=== PATIENT | male | born 1940 | race Caucasian/White ===

== ENCOUNTER 2022-07-16 02:26 | Observation (INO) | payer MEDICARE ==
[2022-07-16] MEDS ORDERED: predniSONE 20 MG TAB ONE (03:06)
[2022-07-16] MEDS ORDERED: Ipratropium/Albuterol 3 ML NEB ONE (03:06)
[2022-07-16] MEDS ORDERED: Doxycycline 100 MG CAP ONE (03:13)
[2022-07-16 03:34] LABS: #Basophils 0.1 thou/uL (0.0-0.2); #Eosinphils 0.4 thou/uL (0.0-0.7); #Lymphocytes 2.2 thou/uL (1.20-3.40); #Monocytes 0.7 thou/uL (0.11-0.59); #Neutrophils 5.6 thou/uL (1.40-6.50); %Basophils 0.8 % (0.0-1.0); %Eosinophils 4.6 % (0.0-10.0); %Lymphocytes 24.7 % (21.0-51.0); %Monocytes 8.1 % (0.0-10.0); %Neutrophils 61.8 % (42.0-75.0); Hemoglobin 12.8 g/dL (14.0-18.0); Mean Corpuscular HGB CONC 32.5 g/dL (32.0-36.0); Mean Corpuscular Hemoglobin 29.7 pg (27.0-31.0); Mean Corpuscular Volume 91.4 fl (78.0-98.0); Mean Platelet Volume 6.2 fL (7.4-10.4); Platelet Count 277 10x3/uL (130-400); RBC Distribution Width 14.2 % (11.5-14.5); Red Blood Cell (RBC) Count 4.32 mill/uL (4.70-6.10)
[2022-07-16 03:52] LABS: ALT (SGPT) 12 U/L (8-55); AST (SGOT) 11 U/L (5-34); Albumin 4.1 g/dL (3.4-4.8); Alkaline Phosphatase 67 U/L (40-110); Anion Gap 18 mmol/L (10-20); BUN (Urea Nitrogen) 23 mg/dL (8.4-25.7); Bilirubin, Total 0.3 mg/dL (0.2-1.2); Calc. Creatinine Clearance 0 mL/min (70-130); Calcium 9.3 mg/dL (7.8-10.44); Carbon Dioxide 24 mmol/L (23-31); Chloride 105 mmol/L (98-107); Estimated GFR 65; Glucose 135 mg/dL (83-110); Potassium 4.6 mmol/L (3.5-5.1); Protein, Total 7.1 g/dL (5.8-8.1); Sodium 142 mmol/L (136-145)
[2022-07-16] MEDS ORDERED: Ondansetron PF 4 MG/2 ML Vial IVP PRN (07:56)
[2022-07-16] MEDS ORDERED: Ondansetron ODT 4 MG TAB PO PRN (07:56)
[2022-07-16 08:31] LABS: SARS-CoV-2 NAA Rapid Test DETECTED (NotDetected)
[2022-07-16] MEDS ORDERED: Albuterol 200 PUFF (6.7GM INHALER) INH PRN ×2 (08:36→10:06)
[2022-07-16 08:52] VITALS: BMI 25.1
[2022-07-16] MEDS ORDERED: Non-Formulary Item 1 EACH (Albuterol Sulfate [Proair Digihaler] 90 MCG Aer.Pw.Bas) IH PRN (09:53)
[2022-07-16] MEDS ORDERED: Ipratropium/Albuterol 3 ML NEB NEB SCH (12:00)
[2022-07-16] MEDS: Ipratropium/Albuterol Sulfate 4 GM AER IH SCH ×3 (12:16→23:54)
[2022-07-16] MEDS: methylPREDNISolone Sod Succ 40 MG VIAL IVP SCH ×2 (14:22→21:19)
[2022-07-16] MEDS ORDERED: Non-Formulary Item 1 EACH (Rivaroxaban [Xarelto] 20 MG Tablet) PO SCH (17:00)
[2022-07-16] MEDS ORDERED: Rivaroxaban 10 MG TAB PO SCH (17:00)
[2022-07-16] MEDS ORDERED: diphenhydrAMINE 25 MG CAP PO SCH (21:00)
[2022-07-16] MEDS ORDERED: Non-Formulary Item 1 EACH (Diltiazem Hcl [Diltiazem 12hr Er] 120 MG Cap.Er.12h) PO SCH (21:00)
[2022-07-16] MEDS ORDERED: Pravastatin Sodium 20 MG TAB PO SCH (21:00)
[2022-07-16] MEDS ORDERED: Non-Formulary Item 1 EACH (Acetaminophen/Diphenhydramine [Tylenol Pm Exstr 500-25mg Cplt] PO SCH (21:00)
[2022-07-16] MEDS ORDERED: Simvastatin 5 MG TAB PO SCH (21:00)
[2022-07-16] MEDS ORDERED: Melatonin 3 MG TAB PO SCH (21:00)
[2022-07-16] MEDS ORDERED: Acetaminophen 500 MG TAB PO SCH (21:00)
[2022-07-16] MEDS: guaiFENesin ER 600 MG TAB PO SCH (21:17)
[2022-07-17] MEDS: Ipratropium/Albuterol Sulfate 4 GM AER IH SCH (05:43)
[2022-07-17] MEDS: methylPREDNISolone Sod Succ 40 MG VIAL IVP SCH (05:43)
[2022-07-17] MEDS ORDERED: Non-Formulary Item 1 EACH (Fluticasone Propionate [Flonase Allergy Relief] 9.9 ML Bottle) EA NARE SCH (09:00)
[2022-07-17] MEDS ORDERED: CO Q-10 CAPSULE 100 MG PO SCH (09:00)
[2022-07-17] MEDS ORDERED: Lisinopril 20 MG TAB PO SCH (09:00)
[2022-07-17] MEDS ORDERED: Fish Oil 1,000 MG CAP PO SCH (09:00)
[2022-07-17] MEDS ORDERED: Fluticasone Propionate Nasal Spray 16 gm Bottle NASAL SCH (09:00)
[2022-07-17] MEDS ORDERED: GLUCOSAMINE PO SCH (09:00)
[2022-07-17] MEDS ORDERED: Non-Formulary Item 1 EACH (Omega-3s/Dha/Epa/Fish Oil [Omega-3 Fish Oil 1,200 Mg Sfgl] 1 E PO SCH (09:00)
[2022-07-17] MEDS ORDERED: VITAMIN E MIXED 400 UNIT PO SCH (09:00)
[2022-07-17] MEDS ORDERED: Non-Formulary Item 1 EACH (Lisinopril [Zestril] 40 MG Tablet) PO SCH (09:00)
[2022-07-17] MEDS ORDERED: Tamsulosin HCl 0.4 MG CAP PO SCH (09:00)
[2022-07-17] MEDS ORDERED: Ascorbic Acid 500 mg Chewable Tablet PO SCH (09:00)
[2022-07-17] MEDS ORDERED: GLUCOSAMINE SULFATE DIPOT CHLR 1000 MG PO SCH (09:00)
[2022-07-17] MEDS ORDERED: Non-Formulary Item 1 EACH (Ascorbic Acid [Vitamin C] 1,000 MG Tablet) PO SCH (09:00)
[2022-07-17] MEDS ORDERED: Docusate 100 MG CAP PO SCH (09:00)
[2022-07-17] MEDS ORDERED: Calcium Polycarbophil 625 MG TAB PO SCH (09:00)
[2022-07-17] MEDS ORDERED: Non-Formulary Item 1 EACH (Ubidecarenone [Co Q-10] 200 MG Capsule) PO SCH (09:00)
[2022-07-17] MEDS ORDERED: Tiotropium Br/Olodaterol Hcl [Stiolto Respimat Inhal Spray] INH SCH (09:00)
[2022-07-17] MEDS ORDERED: Vitamin E 400 UNITS CAP PO SCH (09:00)
[2022-07-17] MEDS ORDERED: [UNRECOGNIZED DRUG - OTHER] PO SCH (09:00)
[2022-07-17] MEDS: guaiFENesin ER 600 MG TAB PO SCH (09:31)
[2022-07-17 09:33] VITALS: BP 124/60
[2022-07-17 09:59] VITALS: TEMP 97.1
== END 2022-07-17 09:45 | disposition home or self-care (01) ==
LOC: BURERS 02:26 → BURMED 07:19
PROVIDERS: ADMIT Family Medicine; ATTEND Family Medicine
DX: J43.9 Emphysema, unspecified (principal); U07.1 COVID-19; I48.0 Paroxysmal atrial fibrillation; I10 Essential (primary) hypertension; E78.5 Hyperlipidemia, unspecified; N40.0 Benign prostatic hyperplasia without lower urinary tract symptoms; Z87.891 Personal history of nicotine dependence; Z79.01 Long term (current) use of anticoagulants; Z79.899 Other long term (current) drug therapy; Z88.0 Allergy status to penicillin; Z99.81 Dependence on supplemental oxygen
CPT/HCPCS: 36415; 71045; 80053; 83880; 84484; 85025; 93005; 96374; 96376; G0378; J2920; J3535; J7512; J7611; J7620; U0002